=== PATIENT | male | born 1940 | race Two or more races ===

== ENCOUNTER 2016-04-24 16:48 | Emergency (ER) | payer OTHER ==
[~2016-04-24] VITALS: Ht 167.6 cm; Wt 81.6 kg
[2016-04-24 17:41] VITALS: BP 127/71
[2016-04-24 17:59] LABS: Urine Bilirubin Negative (Negative); Urine Blood 3+ /uL (Negative); Urine Color Yellow (Yellow); Urine Glucose 4+ mg/dL (Normal); Urine Ketone Negative (Negative); Urine Nitrite Negative (Negative); Urine RBC 79 /hpf (0 - 3); Urine Urobilinogen Normal (Negative); Urine pH 6.5 (5.0-8.0)
== END 2016-04-25 02:30 | disposition left against medical advice (07) ==
LOC: ER 16:54
DX: R31.9 Hematuria, unspecified (principal); Z53.21 Procedure and treatment not carried out due to patient leaving prior to being seen by health care provider
CPT/HCPCS: 81001

== ENCOUNTER 2024-03-03 17:28 | Inpatient (IN) | payer OTHER ==
[~2024-03-03] VITALS: Ht 167.6 cm; Wt 87.9 kg
[2024-03-03 18:08] VITALS: PULSE 102
--- NOTE | 2024-03-03 18:37 | ED.PDOC ---
History of Present Illness HPI Comments 83-year-old male who came to ER via EMS cardiac arrest. Per EMS, patient was picked up at home, having dinner, when he choked on a piece of meat, lost consciousness. Family members performed a Heimlich maneuver, and started CPR on him his paramedics were called. Patient had an episode of vomiting as he woke up. Patient has no recollection what happened. Patient is saturating at 95% air at this time. Chief Complaint: CPR Time Seen by MD: 18:37 Reviewed Notes: Construction Controller Notes Allergies: Coded Allergies: NO KNOWN ALLERGIES (Unverified , 03/03/24) Information Source: Emergency Med Personnel Mode of Arrival: EMS Severity: Moderate Timing: Minutes Duration: Since onset Prehospital treatment: None Past Medical History PAST MEDICAL HISTORY: Dementia Surgical History: Pt Confused Family History Family History: Pt Confused Social History Smoker: Pt Confused Alcohol: Pt Confused Drugs: Pt Confused Lives In: Home Unable to Obtain due to: Dementia Physical Exam General Appearance: No Apparent Distress, Normal HEENT: Normal ENT Inspection, Pharynx Normal, TMs Normal Neck: Full Range of Motion, Non-Tender, Normal, Normal Inspection Respiratory: Chest Non-Tender, Lungs Clear, No Accessory Muscle Use, No Respiratory Distress, Normal Breath Sounds Cardiovascular: No Edema, No JVD, No Murmur, No Gallop, Normal Peripheral Pulses, Regular Rate/Rhythm Breast Exam: Deferred Gastrointestinal: No Organomegaly, Non Tender, No Pulsatile Mass, Normal Bowel Sounds, Soft Genitalia: Deferred Pelvic: Deferred Rectal: Deferred Extremities: No calf tenderness, Normal capillary refill, Normal inspection, Normal range of motion, Non-tender, No pedal edema Musculoskeletal : Apperance: Normal Neurologic: Alert, active directory specialist II-XII nml as Tested, No Motor Deficits, Normal Affect, Normal Mood, No Sensory Deficits Cerebellar Function: Normal Reflexes: Normal Skin: Dry, Normal Color, Warm Lymphatic: No Adenopathy Was a procedure done? Was a procedure done?: No Differential Dx Considerations may include: Aspiration pneumonia, dementia, status post cardiac arrest X-Ray, Labs, Meds, VS Vital Signs Date Time Temp Pulse Resp B/P (MAP) Pulse Ox O2 Delivery O2 Flow Rate FiO2 03/03/24 21:00 94 24 131/69 (89) 94 03/03/24 20:00 93 03/03/24 19:45 96 20 93 Nasal Cannula* 5 40 03/03/24 19:27 98.6 103 25 144/77 (99) 93 98.6 03/03/24 18:52 107 03/03/24 18:08 102 03/03/24 18:08 102 18 123/67 (85) 91 03/03/24 17:49 97.8 92 24 127/79 (95) 90 Lab Test 03/03/24 20:20 03/03/24 19:00 03/03/24 18:00 Range/Units Troponin I High Sensitivity 186 *H 67 *H </=54 ng/L White Blood Count 19.0 H 4.4-10.8 10^3/uL Red Blood Count 4.80 4.5-5.90 10^6/uL Hemoglobin 15.7 13.5-17.5 g/dL Hematocrit 46.1 41.0-53.0 % Mean Corpuscular Volume 96.1 80.0-100.0 fL Mean Corpuscular Hemoglobin 32.8 H 28.0-32.0 pg Mean Corpuscular Hemoglobin Concent 34.1 32.0-36.0 g/dL Red Cell Distribution Width 14.2 11.8-14.3 % Platelet Count 242 140-450 10^3/uL Mean Platelet Volume 7.5 6.9-10.8 fL Neutrophils (%) (Auto) 82.5 H 37.0-80.0 % Lymphocytes (%) (Auto) 9.1 L 10.0-50.0 % Monocytes (%) (Auto) 6.5 0.0-12.0 % Eosinophils (%) (Auto) 1.5 0.0-7.0 % Basophils (%) (Auto) 0.4 0.0-2.0 % Neutrophils # (Auto) 15.6 H 1.6-8.6 10 ^3/uL Lymphocytes # (Auto) 1.7 0.4-5.4 10 ^3/uL Monocytes # (Auto) 1.2 0-1.3 10 ^3/uL Eosinophils # (Auto) 0.3 0-0.8 10 ^3/uL Basophils # (Auto) 0.1 0-0.2 10 ^3/uL Nucleated Red Blood Cells 0.1 % Sodium Level 140 136-145 mmol/L Potassium Level 4.3 3.5-5.1 mmol/L Chloride Level 102 98-107 mmol/L Carbon Dioxide Level 26 20-31 mmol/L Anion Gap 12 5-15 Blood Urea Nitrogen 21 9-23 mg/dL Creatinine 1.30 0.700-1.30 mg/dL Glomerular Filtration Rate Calc 55 >90 mL/min BUN/Creatinine Ratio 16.2 10.0-20.0 Serum Glucose 274 H 74-106 mg/dL Lactic Acid Level 6.4 *H 0.4-2.0 mmol/L Calcium Level 10.2 8.7-10.4 mg/dL Urine Color Colorless Yellow Urine Clarity Clear Clear Urine pH 5.0 5.0-9.0 Urine Specific [place] 1.024 1.001-1.035 Urine Protein 1+ H Negative Urine Ketones 1+ H Negative Urine Blood 2+ H Negative /uL Urine Nitrite Negative Negative Urine Bilirubin Negative Negative Urine Urobilinogen Normal Negative mg/dL Urine Leukocyte Esterase 1+ Negative /uL Urine RBC 31 0 - 3 /hpf Urine WBC 82 0 - 3 /hpf Urine Squamous Epithelial Cells Few <5 /hpf Urine Bacteria None seen None Seen /hpf Urine Glucose 4+ H Normal mg/dL Time of 1ST Reevaluation: 18:34 Reevaluation 1ST: Unchanged Patient Education/Counseling: Other (Has a dementia) Family Education/Counseling: No Family Present Departure 1 Departure Time of Disposition: 21:15 ([place] Authorization for admission here [id number] Patient is post arrest s/p choking. Elevated lactic acid, on bipap, receiving antibiotics for possible aspiration pneumonia) Impression: Primary Impression: Choking due to food in larynx Qualified Codes: T17.320A - Food in larynx causing asphyxiation, initial encounter; [id number].F3XA - Food entering into or through a natural orifice, initial encounter Additional Impression: Respiratory arrest associated with feeding Disposition: ADMITTED INPATIENT Admit to: ICU Condition: Critical Critical Care Note Critical Care Time?: Yes (35 min-critical care time only) Critical care comment: Post Arrest Hypoxia Authorized and Performed by: Gisselle Nguyen MD Total critical care time: Approximately 42 minutes Due to a high probability of clinically significant, life threatening deterioration, the patient required my highest level of preparedness to intervene emergently and I personally spent this critical care time directly and personally managing the patient. This critical care time included obtaining a history; examining the patient; pulse oximetry; ordering and review of studies; arranging urgent treatment with development of a management plan; evaluation of patient's response to treatment; frequent reassessment; and, discussions with other providers. This critical care time was performed to assess and manage the high probability of imminent, life-threatening deterioration that could result in multi-organ failure. It was exclusive of separately billable procedures and treating other patients and teaching time. Please see my other sections and the rest of the note for further information on patient assessment and treatment. Stability Stability form required: No Heart Score Heart Score: Heart Score Response (Comments) Value History N/A 0 EKG N/A 0 Age N/A 0 Risk Factors N/A 0 Troponin N/A 0 Total 0 I personally scribed for GISSELLE NGUYEN MD ([email or web address]) on 03/03/24 at 18:37. Electronically submitted by Cesar Hirsch ([email or web address]). GISSELLE NGUYEN MD Mar 03, 2024 18:37
[2024-03-03 18:57] LABS: Urine Bacteria None Seen /hpf (None Seen)
--- NOTE | 2024-03-03 19:02 | DVH ---
EXAM: CT HEAD WITHOUT CONTRAST INDICATION: ams TECHNIQUE: CT of the head without intravenous contrast. Radiation Dose Information: CT Dose: CTDI volume is 53.25 mGy. Dose-length product is 863.9 mGy*cm The dose indicators for CT are the volume Computed Tomography (CT) Dose Index (CTDIvol) and the Dose Length Product (DLP), and are measured in units of mGy and mGy-cm, respectively. These indicators are not patient dose, but values generated from the CT scanner acquisition factors. The report includes radiation exposure data for exposures received during this examination. COMPARISON: None FINDINGS: There is no evidence of acute intracranial hemorrhage, extra-axial collection, mass effect, midline s hift, herniation or hydrocephalus. The ventricles, sulci and cisterns are age appropriate. The alaniz-white differentiation is intact. Patchy periventricular and subcortical white matter hypoattenuation is nonspecific but may be related to small vessel ischemic disease. The visualized paranasal sinuses and mastoid air cells are clear. The surrounding soft tissues and osseous structures are unremarkable. IMPRESSION: 1. No acute intracranial hemorrhage. 2. No CT findings of territorial ischemia. HS:Y
--- NOTE | 2024-03-03 19:08 | DVH ---
CHEST RADIOGRAPH Indication: ams Technique: Single frontal view of the chest was obtained COMPARISON: None FINDINGS: Lines and Tubes: None Lungs: No focal consolidation. Mild prominence of the pulmonary vasculature. Pleura: No effusion. No pneumothorax. Cardiomediastinal contours: Unremarkable Bones: Unremarkable IMPRESSION: 1. Pulmonary vascular congestion. No focal consolidation.
[2024-03-03 19:16] LABS: Basophils # (auto) 0.1 10 ^3/uL (0-0.2); Basophils % (auto) 0.4 % (0.0-2.0); Eosinophils # (auto) 0.3 10 ^3/uL (0-0.8); Eosinophils % (auto) 1.5 % (0.0-7.0); Hematocrit 46.1 % (41.0-53.0); Hemoglobin 15.7 g/dL (13.5-17.5); Lymphocytes # (auto) 1.7 10 ^3/uL (0.4-5.4); Lymphocytes % (auto) 9.1 % (10.0-50.0); Mean Corpuscular Hemoglobin 32.8 pg (28.0-32.0); Mean Corpuscular Hgb Conc. 34.1 g/dL (32.0-36.0); Mean Corpuscular Volume 96.1 fL (80.0-100.0); Monocytes # (auto) 1.2 10 ^3/uL (0-1.3); Monocytes % (auto) 6.5 % (0.0-12.0); Neutrophils # (auto) 15.6 10 ^3/uL (1.6-8.6); Neutrophils % (auto) 82.5 % (37.0-80.0); Nucleated Red Blood Cells % 0.1 %; Platelet Count (auto) 242 10^3/uL (140-450); Red Cell Distribution Width 14.2 % (11.8-14.3)
[2024-03-03 19:20] LABS: Urine Blood 2+ /uL (Negative); Urine Clarity Clear (Clear); Urine Color Colorless (Yellow); Urine Protein, UAD 1+ (Negative); Urine Specific Gravity 1.024 (1.001-1.035); Urine Urobilinogen Normal (Negative); Urine WBC 82 /hpf (0 - 3)
[2024-03-03 19:23] LABS: Chloride 102 mmol/L (98-107); Potassium 4.3 mmol/L (3.5-5.1); Sodium 140 mmol/L (136-145)
[2024-03-03 19:24] LABS: Anion Gap 12 (5-15); Calcium 10.2 mg/dL (8.7-10.4); Carbon Dioxide 26 mmol/L (20-31)
[2024-03-03 19:29] LABS: BUN/Creatinine Ratio 16.2 (10.0-20.0); Blood Urea Nitrogen 21 mg/dL (9-23); Glucose 274 mg/dL (74-106)
[2024-03-03 19:44] LABS: Lactic Acid w/Reflex 6.4 mmol/L (0.4-2.0)
[2024-03-03 19:45] VITALS: PULSE 96; RESP 20; O2SAT 93
[2024-03-03] MEDS: MORPHINE SULFATE 4 MG/ML SYR/VIAL IV ONE (22:08)
[2024-03-03] MEDS: ONDANSETRON HCL 4 MG/2 ML VIAL IV ONE (22:08)
[2024-03-03] MEDS: AZITHROMYCIN 500MG/ 250ML 250 ML IV ONE (22:26)
[2024-03-03 22:32] LABS: Base Excess 2.1 mmol/L (-2.0-3.0)
[2024-03-03 23:47] VITALS: BP 130/74; PULSE 93; RESP 24; TEMP 98.6; O2SAT 96
--- NOTE | 2024-03-03 23:53 | DVHHP2 ---
History of Present Illness Reason for Visit: Choking due to food in larynx History of Present Illness The patient is a 83-year-old male with past medical history of dementia and diabetes mellitus who presented to [facility] ED for evaluation of cardiac arrest. As reported by EMS, patient was picked up at home due to he was chocked on a piece of meat while having dinner and loss of consciousness. Patient's family performed a Heimlich maneuver, started CPR on him, and paramedics were called. Patient unable to recall what happened. Patient was seen and evaluated in the ED, laboratory data shows WBC 19.0, platelets 242, sodium 140, potassium 4.3, BUN 21, creatinine 1.30, glucose 274, troponin 584, lactic acid 6.4 trending down to 3.4, calcium 10.2, blood pressure 147/80, heart rate 92, temperature 98.6 F, O2 saturation 94% on oxygen. Urinalysis positive for urinary tract infection. Head CT showed no acute intracranial hemorrhage. Chest x-ray revealing pulmonary vascular congestion no focal consolidation. Please see medication orders section in the computer. On my assessment, patient denied chest pain, headache, no dizziness, no diaphoresis, no shortness of breath, no nausea, no vomiting, no fever, no chills. Patient was admitted for further evaluation and medical management. Past Medical History Dementia, DM Past Surgical History Denies all surgeries Family History Reviewed, noncontributory to the management of this case. Past Social History The patient lives at home, denies smoking, alcohol or illicit drugs abuse. Review of Systems Constitutional: Yes: Weakness; No: Fever, Chills, Sweats, Malaise, Other Eyes: No: Pain, Vision change, Conjunctivae inflammation, Eyelid inflammation, Other, Redness ENT: No: Ear pain, Ear discharge, Nose pain, Nose discharge, Nose congestion, Mouth pain, Mouth swelling, Throat pain, Throat swelling, Other Respiratory: No: Cough, Dry, Shortness of breath, SOB with excertion, Wheezing, Hemoptysis, Pleuritic Pain, Sputum, Wheezing, Other Cardiovascular: Other (Cardiac arrest); No: Chest Pain, Palpitations, Orthopnea, Paroxysmal Noc. Dyspnea, Edema, Lt Headedness Gastrointestinal: No: Nausea, Vomiting, Abdominal Pain, Diarrhea, Constipation, Melena, Hematochezia, Other Genitourinary: No Dysuria, No Frequency, No Incontinence, No Hematuria, No Retention, No Other Musculoskeletal: No: other, neck pain, shoulder pain, arm pain, back pain, hand pain, leg pain, foot pain Skin: No: Rash, Lesions, Jaundice, Bruising, Other Neurological: No: Weakness, Numbness, Incoordination, Change in speech, Confusion, Seizures, Other Allergies: Coded Allergies: NO KNOWN ALLERGIES (Unverified , 03/03/24) Medications Current Medications Medications Dose Ordered Sig/Fito Route Start Time Stop Time Status Last Admin Dose Admin Ceftriaxone Sodium 50 ml @ 100 mls/hr DAILY@09 IV 03/04/24 09:00 Azithromycin 250 ml @ 125 mls/hr DAILY IV 03/04/24 10:00 Famotidine 20 mg DAILY IV 03/04/24 10:00 Heparin Sodium (Porcine) 5,000 units Q12HR SC 03/04/24 10:00 Sodium Chloride 10 ml Q8HR IV 03/04/24 06:00 Ondansetron HCl 4 mg Q4HP PRN IV 03/03/24 23:00 Exam Vital Signs Vital Signs Date Time Temp Pulse Resp B/P (MAP) Pulse Ox O2 Delivery O2 Flow Rate FiO2 03/03/24 23:00 93 24 130/74 (92) 96 03/03/24 21:30 Facial BiPAP Mask 100 03/03/24 19:45 5 03/03/24 19:27 98.6 98.6 General Appearance: Alert, Cooperative, No acute distress, mild distress, Other (Oriented x2) HEENT: Atraumatic, PERRLA, EOMI, Mucous membr. moist/pink Respiratory: Clear to auscultation, Normal air movement Cardiovascular: Regular rate, Normal S1, Normal S2, No murmurs Abdominal: Normal bowel sounds, Soft, No tenderness, No hepatospenomegaly, No masses Extremities: No clubbing, No cyanosis, No edema, Normal pulses, No tenderness/swelling Skin: No rashes, No breakdown, No significant lesion Neuro: Normal speech, Normal tone, Sensation intact, Cranial nerves 3-12 NL, Reflexes 2+, Other (Generalized weakness) Psych/Mental Status: Mental status NL, Mood NL Labs/Xrays Labs Test 03/03/24 22:20 03/03/24 22:10 03/03/24 19:00 03/03/24 18:00 Range/Units Blood Gas Specimen Type Arterial Blood Gas Sample Site Right radial Blood Gas Patient Temperature 37.0 Arterial Blood Date Drawn [id number] Arterial Blood pH 7.389 7.350-7.450 Arterial Blood Partial Pressure CO2 47.2 35.0-48.0 mmHg Arterial Blood Partial Pressure O2 173.2 H 83.0-108.0 mmHg Arterial Blood HCO3 27.9 21.0-28.0 mmol/L Arterial Blood Oxygen Saturation 99.0 H 94.0-98.0 % Arterial Blood Base Excess 2.1 -2.0-3.0 mmol/L Arterial Blood Oxyhemoglobin 97.7 94.0-98.0 % Arterial Blood Carboxyhemoglobin 0.8 0.5-1.5 % Arterial Blood Methemoglobin 0.5 0.0-1.5 % Jayson Test Modified Blood Gas Total Hemoglobin 15.90 13.5-17.5 g/dL Blood Gas Set Respiration Rate 12.0 Blood Gas Modality Mask - bipap Blood Gas Spontaneous Rate 24 FiO2 % 100.0 Blood Gas Spontaneous Tidal Volume 569 Blood Gas EPAP 5 Blood Gas IPAP 12 Lactic Acid Level 3.4 *H 0.4-2.0 mmol/L Troponin I High Sensitivity 584 *H </=54 ng/L White Blood Count 19.0 H 4.4-10.8 10^3/uL Red Blood Count 4.80 4.5-5.90 10^6/uL Hemoglobin 15.7 13.5-17.5 g/dL Hematocrit 46.1 41.0-53.0 % Mean Corpuscular Volume 96.1 80.0-100.0 fL Mean Corpuscular Hemoglobin 32.8 H 28.0-32.0 pg Mean Corpuscular Hemoglobin Concent 34.1 32.0-36.0 g/dL Red Cell Distribution Width 14.2 11.8-14.3 % Platelet Count 242 140-450 10^3/uL Mean Platelet Volume 7.5 6.9-10.8 fL Neutrophils (%) (Auto) 82.5 H 37.0-80.0 % Lymphocytes (%) (Auto) 9.1 L 10.0-50.0 % Monocytes (%) (Auto) 6.5 0.0-12.0 % Eosinophils (%) (Auto) 1.5 0.0-7.0 % Basophils (%) (Auto) 0.4 0.0-2.0 % Neutrophils # (Auto) 15.6 H 1.6-8.6 10 ^3/uL Lymphocytes # (Auto) 1.7 0.4-5.4 10 ^3/uL Monocytes # (Auto) 1.2 0-1.3 10 ^3/uL Eosinophils # (Auto) 0.3 0-0.8 10 ^3/uL Basophils # (Auto) 0.1 0-0.2 10 ^3/uL Nucleated Red Blood Cells 0.1 % Sodium Level 140 136-145 mmol/L Potassium Level 4.3 3.5-5.1 mmol/L Chloride Level 102 98-107 mmol/L Carbon Dioxide Level 26 20-31 mmol/L Anion Gap 12 5-15 Blood Urea Nitrogen 21 9-23 mg/dL Creatinine 1.30 0.700-1.30 mg/dL Glomerular Filtration Rate Calc 55 >90 mL/min BUN/Creatinine Ratio 16.2 10.0-20.0 Serum Glucose 274 H 74-106 mg/dL Hemoglobin A1c 6.9 H <5.7 % A1C Calcium Level 10.2 8.7-10.4 mg/dL Urine Color Colorless Yellow Urine Clarity Clear Clear Urine pH 5.0 5.0-9.0 Urine Specific [place] 1.024 1.001-1.035 Urine Protein 1+ H Negative Urine Ketones 1+ H Negative Urine Blood 2+ H Negative /uL Urine Nitrite Negative Negative Urine Bilirubin Negative Negative Urine Urobilinogen Normal Negative mg/dL Urine Leukocyte Esterase 1+ Negative /uL Urine RBC 31 0 - 3 /hpf Urine WBC 82 0 - 3 /hpf Urine Squamous Epithelial Cells Few <5 /hpf Urine Bacteria None seen None Seen /hpf Urine Glucose 4+ H Normal mg/dL PATIENT: CORRIE TAYLOR ACCT: [id number] UNIT: [id number] : 1940 LOC: ER ROOM / BED: / AGE / SEX: 83 / M ADM STATUS: REG ER SERVICE 14 ORDERING PHYSICIAN: GISSELLE LI MD PROCEDURE(s): HWOCT - HEAD WITHOUT CONTRAST REASON: ams ORDER NUMBER(s): [id number], ACCESSION NUMBER(s): [id number] EXAM: CT HEAD WITHOUT CONTRAST INDICATION: ams TECHNIQUE: CT of the head without intravenous contrast. Radiation Dose Information: CT Dose: CTDI volume is 53.25 mGy. Dose-length product is 863.9 mGy*cm The dose indicators for CT are the volume Computed Tomography (CT) Dose Index (CTDIvol) and the Dose Length Product (DLP), and are measured in units of mGy and mGy-cm, respectively. These indicators are not patient dose, but values generated from the CT scanner acquisition factors. The report includes radiation exposure data for exposures received during this examination. COMPARISON: None FINDINGS: There is no evidence of acute intracranial hemorrhage, extra-axial collection, mass effect, midline shift, herniation or hydrocephalus. The ventricles, sulci and cisterns are age appropriate. The alaniz-white differentiation is intact. Patchy periventricular and subcortical white matter hypoattenuation is nonspecific but may be related to small vessel ischemic disease. The visualized paranasal sinuses and mastoid air cells are clear. The surrounding soft tissues and osseous structures are unremarkable. IMPRESSION: 1. No acute intracranial hemorrhage. 2. No CT findings of territorial ischemia. ORDERING PHYSICIAN: GISSELLE LI MD PROCEDURE(s): CXRP - CHEST PORTABLE REASON: ams ORDER NUMBER(s): [id number], ACCESSION NUMBER(s): [id number] CHEST RADIOGRAPH Indication: ams Technique: Single frontal view of the chest was obtained COMPARISON: None FINDINGS: Lines and Tubes: None Lungs: No focal consolidation. Mild prominence of the pulmonary vasculature. Pleura: No effusion. No pneumothorax. Cardiomediastinal contours: Unremarkable Bones: Unremarkable IMPRESSION: 1. Pulmonary vascular congestion. No focal consolidation. Assessment/Plan Assessment/Plan Choking due to food in larynx Food in larynx causing asphyxiation, initial encounter Urinary tract infection Generalized weakness Sepsis, unspecified organisms Respiratory arrest associated with feeding Food entering into or through a natural orifice, initial encounter Plan 1. Admit to telemetry unit 2. Breathing treatment 3. Pain control management 4. IV antibiotic management 5. Management of fluids and electrolytes 6. Consultation for cardiology/hospitalist 7. Diagnostic test chest x-ray 8. DVT prophylaxis on heparin 9. Repeat labs CBC, CMP in a.m. 10. Home medication reviewed and reconciled 11. Continue with current medical management 12. Treatment plan discussed with patient and RN. Patient we will need reinforcement of information given mental status. Plan discussed with: Patient, Other (RN) My Orders Orders - KIM OREILLY DNP Procedure Category Date Status Time Ceftriaxone 1gm/50ml PHA 03/04/24 In Process D5w (Rocephin) 09:00 Azithromycin 500mg/ PHA 03/04/24 In Process 250ml (Zithromax 50 10:00 Famotidine Injection PHA 03/04/24 In Process (Pepcid Injection) 10:00 Troponin-I Hs LAB 03/04/24 Verified 01:56 Troponin-I Hs LAB 03/04/24 Verified 04:00 Heparin Sodium PHA 03/04/24 In Process (Porcine) 10:00 Allergies MIAH 03/03/24 In Process 22:56 Code Status CODE 03/03/24 Transmitted 22:56 Sodium Chloride Lock PHA 03/04/24 In Process (Saline Lock Ns) 06:00 Oxygen Per Hour RT 03/03/24 Transmitted 22:56 Ondansetron Hcl PHA 03/03/24 In Process (Zofran) 23:00 Fall Risk Precautions MIAH 03/03/[address] 22:56 Complete Blood Count LAB 03/04/24 Verified 04:00 Comprehensive LAB 03/04/24 Verified Metabolic Panel 04:00 Npo (Nothing By DIET 03/04/24 Transmitted Mouth) Diet Breakfast Condition: Serious MIAH 03/03/24 In Process 22:56 Sequential MIAH 03/03/24 In Process Compression Device Problem List: (1) Choking due to food in larynx (2) Urinary tract infection (3) Generalized weakness (4) Sepsis, unspecified organism (5) Respiratory arrest associated with feeding (6) Food entering into or through a natural orifice, initial encounter (7) Food in larynx causing asphyxiation, initial encounter Date of Service: Mar 03, 2024 Billing Provider: KIM OREILLY DNP Common Visit Codes: [id number] INP/OBS CARE (HIGH) KIM OREILLY DNP Mar 03, 2024 23:53
[2024-03-04] MEDS ORDERED: DEXTROSE (50%) 50ML SYRG IV PRN
[2024-03-04] MEDS ORDERED: NITROGLYCERIN 0.4 MG SL TAB SL PRN
[2024-03-04] MEDS: CEFEPIME 2GM/50ML NS 50 ML IV ONE (00:36)
[2024-03-04] MEDS: ONDANSETRON HCL 4 MG/2 ML VIAL IV PRN (01:42)
[2024-03-04] MEDS: MORPHINE SULFATE INJ 2 MG/ml SYRG IV PRN (01:43)
[2024-03-04] MEDS ORDERED: LORazepam 2MG/ML-1ML VIAL IV PRN (02:45)
[2024-03-04] MEDS ORDERED: MORPHINE SULFATE INJ 2 MG/ml SYRG IV PRN (02:45)
[2024-03-04] MEDS: hydrALAZINE HCL 20 MG/ML VL IV PRN (02:56)
[2024-03-04 04:55] LABS: Basophils # (auto) 0.1 10 ^3/uL (0-0.2); Basophils % (auto) 0.3 % (0.0-2.0); Eosinophils # (auto) 0 10 ^3/uL (0-0.8); Hematocrit 49.2 % (41.0-53.0); Hemoglobin 15.9 g/dL (13.5-17.5); Lymphocytes # (auto) 0.7 10 ^3/uL (0.4-5.4); Lymphocytes % (auto) 3.1 % (10.0-50.0); Mean Corpuscular Hemoglobin 31.6 pg (28.0-32.0); Mean Corpuscular Hgb Conc. 32.4 g/dL (32.0-36.0); Mean Corpuscular Volume 97.8 fL (80.0-100.0); Monocytes # (auto) 1.1 10 ^3/uL (0-1.3); Neutrophils # (auto) 19.8 10 ^3/uL (1.6-8.6); Neutrophils % (auto) 91.6 % (37.0-80.0); Nucleated Red Blood Cells % 0.1 %; Platelet Count (auto) 240 10^3/uL (140-450); Red Blood Cells 5.03 10^6/uL (4.5-5.90); Red Cell Distribution Width 14.4 % (11.8-14.3); White Blood Cell 21.6 10^3/uL (4.4-10.8)
[2024-03-04 05:17] LABS: Alanine Aminotransferase 30 U/L (7-40); Albumin 4.8 g/dL (3.2-4.8); Alkaline Phosphatase 64 U/L (46-116); Anion Gap 10 (5-15); Aspartate Aminotransferase 22 U/L (13-40); BUN/Creatinine Ratio 15.9 (10.0-20.0); Bilirubin, Total 0.5 mg/dL (0.2-1.0); Blood Urea Nitrogen 18 mg/dL (9-23); Calcium 9.9 mg/dL (8.7-10.4); Carbon Dioxide 24 mmol/L (20-31); Chloride 103 mmol/L (98-107); Glucose 337 mg/dL (74-106); Potassium 4.8 mmol/L (3.5-5.1); Sodium 137 mmol/L (136-145); Total Protein 7.4 g/dL (5.7-8.2)
[2024-03-04] MEDS: HEPARIN SODIUM (PORCINE) 5000 UNITS/ML 1ML VIAL SC ONE (05:34)
[2024-03-04] MEDS: SODIUM CHLOR 0.9% PF (SALINE LOCK) 10ML VIAL/SYR IV SCH (05:40)
[2024-03-04] MEDS ORDERED: VANCOMYCIN PER PHARMACY 0 MG IV SCH (06:30)
[2024-03-04] MEDS: dilTIAZem 25 MG/5 ML VIAL IV ONE (06:31)
[2024-03-04] MEDS: ACCU-CHEK COMFORT CURVE STRIP VI SCH (06:39)
[2024-03-04] MEDS: InsuLIN REG 1unit/0.01ml Soln (100units/ml) SC SCH ×2 (06:45→22:40)
[2024-03-04] MEDS: VANCOMYCIN 1GM/200ML PREMIX IV ONE (06:49)
[2024-03-04 08:00] VITALS: PULSE 107; RESP 18; O2SAT 95
--- NOTE | 2024-03-04 08:33 | ECG ---
[facility] Test Date: 2024-03-04 Test Time: 06:22:21 Pat Name: CORRIE TAYLOR Department: ED Room: [address] [place] [address] Gender: M Comic Illustrator: : 1940 Requested By: KIM OREILLY Order Number: [id number] Reading MD: Measurements Intervals [place] Rate: 115 P: 38 MO: 175 QRS: 30 QRSD: 83 T: 18 QT: 314 QTc: 435 Interpretive Statements Sinus tachycardia Probable anteroseptal infarct, old Please click the below link to view image of tracing.
[2024-03-04] MEDS: cefTRIAXone 1GM/50ML D5W 50 ML IV SCH (09:00)
[2024-03-04] MEDS: FAMOTIDINE (10MG/ML) 2ML VL IV SCH ×2 (09:45→22:34)
[2024-03-04] MEDS: AZITHROMYCIN 500MG/ 250ML 250 ML IV SCH (09:45)
[2024-03-04] MEDS: FUROSEMIDE 20 MG/2 ML VIAL IV ONE (11:45)
--- NOTE | 2024-03-04 11:47 | DVHINCON2 ---
Date Seen: Mar 04, 2024 Referring Physician DIAMOND Barajas Reason for Consultation Elevated troponin History of Present Illness This is an 83-year-old man who presented to emergency room via EMS with a chief complaint of foreign body airway obstruction. The patient is A&O x 2, information obtained from records. Apparently the patient choked on a piece of steak with family members unsuccessfully performing a Heimlich maneuver and subsequent CPR as the patient lost consciousness. Upon regaining consciousness, the patient experienced vomiting. He presented to the emergency room with O2 saturations of 95%. Cardiology consulted for troponin levels peaking in the 900s ng/L. A 12 lead electrocardiogram revealed a sinus tachycardia rhythm at 115 bpm with no evident ischemia. C/o chest pain which is reproducible upon palpation. Significant medical history includes diabetes mellitus and dementia. Past Medical History Unable to obtain full past medical history at this time. Past Surgical History Unable to obtain past surgical history at this time. Family History Unable to obtain family history at this time. Social History States he lives with his . Unable to obtain rest of social history. Allergies: Coded Allergies: NO KNOWN ALLERGIES (Unverified , 03/03/24) Home Meds Unable to obtain home medications. Current Medications Current Medications Medications (Trade) Dose Ordered Sig/Fito Route PRN Reason Start Time Stop Time Status Last Admin Ceftriaxone Sodium 50 ml @ 100 mls/hr DAILY@09 IV 03/04/24 09:00 03/04/24 09:00 Azithromycin 250 ml @ 125 mls/hr DAILY IV 03/04/24 10:00 03/04/24 09:45 Famotidine (Pepcid Injection) 20 mg DAILY IV 03/04/24 10:00 03/04/24 09:45 Heparin Sodium (Porcine) 5,000 units Q12HR SC 03/04/24 22:00 Sodium Chloride (Saline Lock Ns) 10 ml Q8HR IV 03/04/24 06:00 03/04/24 05:40 Ondansetron HCl (Zofran) 4 mg Q4HP PRN IV NAUSEA / VOMITING 03/03/24 23:00 03/04/24 09:46 Diagnostic Test (Pha) (Accu-Chek Comfort Curve T) 1 strip ACHS 03/04/24 07:00 03/04/24 06:39 Insulin Human Regular (InsuLIN R) HS SC 03/04/24 22:00 Insulin Human Regular (InsuLIN R) AC SC 03/04/24 07:00 03/04/24 06:45 Dextrose 50 ml UD PRN IV Blood Sugar LESS THAN 60 03/04/24 00:00 Nitroglycerin (Ntrostat Sublingual) 0.4 mg Q5MINP PRN SL FOR CHEST PAIN 03/04/24 00:00 Morphine Sulfate 2 mg Q30M PRN IV FOR CHEST PAIN 03/04/24 00:00 03/04/24 09:46 Hydralazine HCl (Apresoline Injection) 10 mg Q6HP PRN IV SBP>150 03/04/24 02:45 03/04/24 02:56 Lorazepam (Ativan Inj) 0.5 mg Q8HP PRN IV ANXIETY 03/04/24 02:45 Morphine Sulfate 2 mg Q4HPRN PRN IV SEVERE PAIN (7-10 PAIN SCALE) 03/04/24 02:45 Vancomycin HCl 0 ml @ 0 mls/hr UD IV 03/04/24 06:30 Vancomycin HCl 150 ml @ 150 mls/hr Q12H IV 03/05/24 01:00 Review of Systems Constitutional: No symptom reported Ears, Nose, & Throat: No symptom reported Eyes: No symptom reported Neurological: No symptoms reported Pulmonary/Respiratory: No symptom reported Cardiovascular: No symptom reported Gastrointestinal: No symptom reported Genitourinary: No symptom reported Musculoskeletal: Chest wall pain Skin: No symptom reported Psychiatric: No symptom reported Endocrine: No symptom reported Hemotologic/Lymphatic: No symptom reported Vital Signs Vital Signs Date Time Temp Pulse Resp B/P (MAP) Pulse Ox O2 Delivery O2 Flow Rate FiO2 03/04/24 09:46 104 95 145/74 03/04/24 06:03 95 03/03/24 23:47 98.6 6.0 98.6 03/03/24 21:30 Facial BiPAP Mask 100 Physical Exam General Appearance: Lethargic. Elder. Well nourished. In no acute distress Head Exam: Normal inspection Neck Exam: Normal inspection. Non-tender. Normal alignment Pulmonary/Respiratory: Chest tender to palpation. Coarse bilateral breath sounds Cardiovascular/Chest: Regular rate and rhythm. S1, S2. NSR. No murmurs. No JVD. Peripheral Pulses: 2+ Radial (R). 2+ Radial (L). 2+ Pedal (R). 2+ Pedal (L) Abdominal Exam: Normal bowel sounds. Soft. Nontender. No hepatospenomegaly. No masses Ankle Exam: Negative ankle edema Lower extremities: Negative lower extremity edema Neuro/Mental Status: A&O x2. Very poor historian Thoughts/Psych: Appropriate mood and affect Appearance: In no acute distress Skin Exam: Normal inspection. Normal color. Warm. Dry Labs/Diagnostic Data Labs Test 03/04/24 06:37 03/04/24 04:35 03/03/24 22:20 03/03/24 22:10 Range/Units POC Glucose 317 H 70-106 mg/dl White Blood Count 21.6 H 4.4-10.8 10^3/uL Red Blood Count 5.03 4.5-5.90 10^6/uL Hemoglobin 15.9 13.5-17.5 g/dL Hematocrit 49.2 41.0-53.0 % Mean Corpuscular Volume 97.8 80.0-100.0 fL Mean Corpuscular Hemoglobin 31.6 28.0-32.0 pg Mean Corpuscular Hemoglobin Concent 32.4 32.0-36.0 g/dL Red Cell Distribution Width 14.4 H 11.8-14.3 % Platelet Count 240 140-450 10^3/uL Mean Platelet Volume 7.5 6.9-10.8 fL Neutrophils (%) (Auto) 91.6 H 37.0-80.0 % Lymphocytes (%) (Auto) 3.1 L 10.0-50.0 % Monocytes (%) (Auto) 5.0 0.0-12.0 % Eosinophils (%) (Auto) 0.0 0.0-7.0 % Basophils (%) (Auto) 0.3 0.0-2.0 % Neutrophils # (Auto) 19.8 H 1.6-8.6 10 ^3/uL Lymphocytes # (Auto) 0.7 0.4-5.4 10 ^3/uL Monocytes # (Auto) 1.1 0-1.3 10 ^3/uL Eosinophils # (Auto) 0 0-0.8 10 ^3/uL Basophils # (Auto) 0.1 0-0.2 10 ^3/uL Nucleated Red Blood Cells 0.1 % Sodium Level 137 136-145 mmol/L Potassium Level 4.8 3.5-5.1 mmol/L Chloride Level 103 98-107 mmol/L Carbon Dioxide Level 24 20-31 mmol/L Anion Gap 10 5-15 Blood Urea Nitrogen 18 9-23 mg/dL Creatinine 1.13 0.700-1.30 mg/dL Glomerular Filtration Rate Calc 65 >90 mL/min BUN/Creatinine Ratio 15.9 10.0-20.0 Serum Glucose 337 H 74-106 mg/dL Calcium Level 9.9 8.7-10.4 mg/dL Total Bilirubin 0.5 0.2-1.0 mg/dL Aspartate Amino Transferase (AST) 22 13-40 U/L Alanine Aminotransferase (ALT) 30 7-40 U/L Alkaline Phosphatase 64 46-116 U/L Troponin I High Sensitivity 837 *H </=54 ng/L B-Type Natriuretic Peptide 84.19 0-100 pg/mL Total Protein 7.4 5.7-8.2 g/dL Albumin 4.8 3.2-4.8 g/dL Blood Gas Specimen Type Arterial Blood Gas Sample Site Right radial Blood Gas Patient Temperature 37.0 Arterial Blood Date Drawn [id number] Arterial Blood pH 7.389 7.350-7.450 Arterial Blood Partial Pressure CO2 47.2 35.0-48.0 mmHg Arterial Blood Partial Pressure O2 173.2 H 83.0-108.0 mmHg Arterial Blood HCO3 27.9 21.0-28.0 mmol/L Arterial Blood Oxygen Saturation 99.0 H 94.0-98.0 % Arterial Blood Base Excess 2.1 -2.0-3.0 mmol/L Arterial Blood Oxyhemoglobin 97.7 94.0-98.0 % Arterial Blood Carboxyhemoglobin 0.8 0.5-1.5 % Arterial Blood Methemoglobin 0.5 0.0-1.5 % Jayson Test Modified Blood Gas Total Hemoglobin 15.90 13.5-17.5 g/dL Blood Gas Set Respiration Rate 12.0 Blood Gas Modality Mask - bipap Blood Gas Spontaneous Rate 24 FiO2 % 100.0 Blood Gas Spontaneous Tidal Volume 569 Blood Gas EPAP 5 Blood Gas IPAP 12 Lactic Acid Level 3.4 *H 0.4-2.0 mmol/L Test 03/03/24 19:00 03/03/24 18:00 Range/Units Hemoglobin A1c 6.9 H <5.7 % A1C Urine Color Colorless Yellow Urine Clarity Clear Clear Urine pH 5.0 5.0-9.0 Urine Specific Mckee 1.024 1.001-1.035 Urine Protein 1+ H Negative Urine Ketones 1+ H Negative Urine Blood 2+ H Negative /uL Urine Nitrite Negative Negative Urine Bilirubin Negative Negative Urine Urobilinogen Normal Negative mg/dL Urine Leukocyte Esterase 1+ Negative /uL Urine RBC 31 0 - 3 /hpf Urine WBC 82 0 - 3 /hpf Urine Squamous Epithelial Cells Few <5 /hpf Urine Bacteria None seen None Seen /hpf Urine Glucose 4+ H Normal mg/dL Assessment Foreign body airway obstruction Non-cardiac chest pain, musculoskeletal status post CPR NSTEMI likely type II secondary to above Questionable cardiac arrest, not suspected Rule out structural heart disease Diabetes mellitus Dementia Plan/Recommendation (Dr. Cooper) Patient presents with noncardiac chest pain likely musculoskeletal secondary to CPR provided by family for questionable cardiac arrest due to foreign body air way obstruction. We will continue further evaluation with a transthoracic echocardiogram to rule out structural heart disease. In the setting of an unremarkable echocardiogram, there is no further cardiac workup indicated at this time. Thank you for allowing us to participate in this patient's care. Please call if you have any questions or concerns. This medical document was created using an electronic medical record system with voice recognition software and computerized dictation system. Although this document has been carefully reviewed, there might still be some phonetic and typographical errors. Occasional wrong-word or ``sound-alike substitutions may have occurred due to the inherent limitations of voice recognition software. These areas are purely typographical due to imperfections of the software programs and do not reflect any compromise in the patient's medical care. Please read the chart carefully and recognize, using context, where these substitutions have occurred. Plan discussed with: Other Date of Service: Mar 04, 2024 Billing Provider: PANFILO COOPER MD Cardiology Common Codes: [id number] INP/OBS CARE (High) [facility] Mar 04, 2024 11:47
--- NOTE | 2024-03-04 12:11 | DVHPNRES ---
Progress Note Objective vital signs Vital Sign Date Time Temp Pulse Resp B/P (MAP) Pulse Ox O2 Delivery O2 Flow Rate FiO2 03/04/24 09:46 104 95 145/74 03/04/24 06:03 95 03/03/24 23:47 98.6 6.0 98.6 03/03/24 21:30 Facial BiPAP Mask 100 Total Intake and Output 03/03/24 03/03/24 03/04/24 15:00 23:00 07:00 Intake Total 300.0 ml Balance 300.0 ml medications Current Medications Medications Dose Ordered Sig/Fito Route Start Time Stop Time Status Last Admin Dose Admin Ceftriaxone Sodium 50 ml @ 100 mls/hr DAILY@09 IV 03/04/24 09:00 03/04/24 09:00 100 MLS/HR Azithromycin 250 ml @ 125 mls/hr DAILY IV 03/04/24 10:00 03/04/24 09:45 125 MLS/HR Heparin Sodium (Porcine) 5,000 units Q12HR SC 03/04/24 22:00 Sodium Chloride 10 ml Q8HR IV 03/04/24 06:00 03/04/24 05:40 10 ML Ondansetron HCl 4 mg Q4HP PRN IV 03/03/24 23:00 03/04/24 09:46 4 MG Diagnostic Test (Pha) 1 strip ACHS 03/04/24 07:00 03/04/24 06:39 1 STRIP Insulin Human Regular HS SC 03/04/24 22:00 Insulin Human Regular AC SC 03/04/24 07:00 03/04/24 06:45 12 UNITS Dextrose 50 ml UD PRN IV 03/04/24 00:00 Nitroglycerin 0.4 mg Q5MINP PRN SL 03/04/24 00:00 Hydralazine HCl 10 mg Q6HP PRN IV 03/04/24 02:45 03/04/24 02:56 10 MG Lorazepam 0.5 mg Q8HP PRN IV 03/04/24 02:45 Vancomycin HCl 0 ml @ 0 mls/hr UD IV 03/04/24 06:30 Cancel Vancomycin HCl 150 ml @ 150 mls/hr Q12H IV 03/05/24 01:00 Cancel Lidocaine 1 patch DAILY TOP 03/05/24 10:00 Famotidine 20 mg BID IV 03/04/24 22:00 UNV Lactated Ringer's 1,000 ml @ 50 mls/hr Q20H IV 03/04/24 12:15 UNV Acetaminophen 650 mg Q6HR PO 03/04/24 12:15 UNV Morphine Sulfate 1 mg Q4HP PRN IV 03/04/24 12:15 UNV laboratory and microbiology Laboratory Tests 03/04/24 04:35 Test 03/04/24 04:35 Range/Units Serum Glucose 337 H 74-106 mg/dL My Orders My Orders Orders - YANETH GRANT RESIDENT Procedure Category Date Status Time Ct Chest With And Wo CT 03/04/24 Logged 11:55 Lactic Acid W/ Reflex LAB 03/04/24 Logged Order 11:57 Incentive Spirometry ORDERS 03/04/24 Transmitted Q 1hr 11:58 Lidocaine 5% Topical PHA 03/05/24 In Process Patch (Lidoderm 5% 10:00 Famotidine Injection PHA 03/04/24 Logged (Pepcid Injection) 22:00 Strict Aspiration MIAH 03/04/24 In Process Precautions 12:02 May Have Head Of Bed MIAH 03/04/24 In Process up 12:02 * Swallow Request ST 03/04/24 Transmitted 12:02 Npo (Nothing By DIET 03/04/24 Transmitted Mouth) Diet Lunch Lactated Ringer's PHA 03/04/24 Logged 12:15 Acetaminophen Tablet PHA 03/04/24 Logged (Tylenol Tablet) 12:15 Morphine Sulfate PHA 03/04/24 Logged Injection 12:15 Nifedipine Er PHA 03/04/24 Transmitted (Procardia Xl 12:15 YANETH GRANT RESIDENT Mar 04, 2024 12:11
[2024-03-04] MEDS: LACTATED RINGER'S 1,000 ML IV SCH (12:15)
[2024-03-04 13:29] LABS: Lactic Acid w/Reflex 2.9 mmol/L (0.4-2.0)
[2024-03-04] MEDS: IOHEXOL 300 MG/ML 100ML BOTTLE IJ ONE (13:49)
[2024-03-04] MEDS: ACETAMINOPHEN 325 MG TAB PO SCH (13:49)
[2024-03-04] MEDS: NIFEdipine ER 30 MG TAB PO SCH (13:49)
[2024-03-04] MEDS: LIDOCAINE 5% TOPICAL PATCH TOP ONE (13:50)
[2024-03-04 15:00] VITALS: BP 124/75; PULSE 95; RESP 17; TEMP 98.6; O2SAT 95
[2024-03-04 15:23] VITALS: BP 103/60; PULSE 100; RESP 18; TEMP 98.7; O2SAT 96
--- NOTE | 2024-03-04 15:52 | DVH ---
EXAM: CT CT CHEST WITH AND WO HISTORY: mediastenal widening, cardiac contusion aortic diameter COMPARISON: None TECHNIQUE: Axial images were obtained and reformatted in coronal and sagittal planes. All CT scans at this medical facility are performed using dose modulation techniques as appropriate to a performed exam including the following: Automated exposure control was utilized; adjustment of the MA and/or K V according to patient size; and use of iterative reconstruction technique. CT Dose: CTDI volume is 26.6 mGy. Dose-length product is 1972.06 mGy*cm FINDINGS: Lower neck: Mildly enlarged and heterogeneous thyroid gland with few punctate calcifications noted . Cardiomediastinal The heart is normal in size. Heavy coronary artery calcification/ stenting noted. Aorta is normal in caliber with scattered calcified plaques noted. Prominent pulmonary arterial trunk reflecting underlying pulmonary arterial hypertension. Mild mediastinal and hilar lymphadenopathy. s mall amount of fluid is seen in the esophageal lumen. Lungs: Bibasilar pulmonary opacities, left greater than right. No pleural effusion. No pneumothorax. Bones and Soft Tissues: No acute abnormality. 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 Upper Abdomen: No acute abnormality. Mildly nodular liver contour. Other: None. IMPRESSION: 1. Left lower lobe pneumonia involving the superior and medial basal segments possibly aspiration pne umonia. Small amount of fluid is seen in esophageal lumen. 2. Mild right basilar subsegmental atelectasis. 3. Mild cardiomegaly.
[2024-03-04 17:00] VITALS: BP 113/76; PULSE 96; RESP 17; TEMP 98.5; O2SAT 95
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
[2024-03-04 20:00] VITALS: PULSE 99
[2024-03-04 21:00] VITALS: BP 111/63; PULSE 99; RESP 18; TEMP 97.7; O2SAT 91
[2024-03-04] MEDS: HEPARIN SODIUM (PORCINE) 5000 UNITS/ML 1ML VIAL SC SCH (22:32)
[2024-03-05] VITALS (9 sets, daily range): BP systolic 112–147; BP diastolic 59–81; PULSE 90–99; RESP 16–20; TEMP 97.7–98.8; O2SAT 94
[2024-03-05] MEDS ORDERED: VANCOMYCIN 750mg/150ml 150 ML IV SCH (01:00)
[2024-03-05 07:00] LABS: Alanine Aminotransferase 18 U/L (7-40); Albumin 4.2 g/dL (3.2-4.8); Alkaline Phosphatase 47 U/L (46-116); Anion Gap 7 (5-15); Aspartate Aminotransferase 10 U/L (13-40); BUN/Creatinine Ratio 20.5 (10.0-20.0); Bilirubin, Total 0.5 mg/dL (0.2-1.0); Blood Urea Nitrogen 24 mg/dL (9-23); Calcium 9.4 mg/dL (8.7-10.4); Carbon Dioxide 27 mmol/L (20-31); Chloride 105 mmol/L (98-107); Glucose 174 mg/dL (74-106); Sodium 139 mmol/L (136-145)
[2024-03-05 07:06] LABS: Basophils # (auto) 0 10 ^3/uL (0-0.2); Basophils % (auto) 0.3 % (0.0-2.0); Eosinophils # (auto) 0.2 10 ^3/uL (0-0.8); Eosinophils % (auto) 1.2 % (0.0-7.0); Hematocrit 43.3 % (41.0-53.0); Hemoglobin 14.3 g/dL (13.5-17.5); Lymphocytes # (auto) 1.8 10 ^3/uL (0.4-5.4); Lymphocytes % (auto) 13.1 % (10.0-50.0); Mean Corpuscular Hemoglobin 31.6 pg (28.0-32.0); Mean Corpuscular Hgb Conc. 32.9 g/dL (32.0-36.0); Mean Corpuscular Volume 96.1 fL (80.0-100.0); Monocytes # (auto) 0.9 10 ^3/uL (0-1.3); Monocytes % (auto) 6.4 % (0.0-12.0); Nucleated Red Blood Cells % 0.1 %; Platelet Count (auto) 243 10^3/uL (140-450); Red Blood Cells 4.51 10^6/uL (4.5-5.90); Red Cell Distribution Width 14.5 % (11.8-14.3); White Blood Cell 13.9 10^3/uL (4.4-10.8)
[2024-03-05] MEDS: LIDOCAINE 5% TOPICAL PATCH TOP SCH (10:14)
[2024-03-05 12:09] LABS: INR 1.07 (0.9-1.15); Prothrombin Time 11.3 sec (9.3-11.8)
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
[2024-03-05] MEDS ORDERED: VANCOMYCIN PER PHARMACY 0 MG IV SCH (14:00)
--- NOTE | 2024-03-05 15:20 | DVHSR ---
APPROVED REPORT EXAM: Two-dimensional and M-mode echocardiogram with Doppler and color Doppler. Blood Pressure: 112/59 mmHg INDICATION Heart Failure RISK FACTORS Height: 5'6", Weight: 175 DIMENSIONS LVDd4.3 (3.8-5.7cm)LA (2D)4.2 (1.9-4.0cm)Aortic Root3.5 (2.0-3.7cm) LVDs3.2 (2.5-4.0cm)LA (MM) (1.9-4.0cm)Aortic Cusp Exc1.4 (1.5-2.0cm) EF (%) 49.0 (55-70%)Rt. Atrium4.4 (1.9-4.0cm)Asc. Aorta3.5 cm IVSd1.2 (0.7-1.1cm)RV (D)3.4 (1.8-2.4cm) PWd1.1 (0.7-1.1cm) Mitral Valve MitralMitral Stenosis E wave0.61m/sMV Mean GR.mmHg A wave0.72m/sMV Peak GR.mmHg E/A ratio0.82D MVAcm2 DECEL [id number] 1/2 [place] Aortic Valve Aortic ValveAortic Stenosis V10.76m/Kenrick Mean GR.5mmHg V21.55m/Kenrick Peak GR.10mmHg LVOT Diameter2.1 (1.8-2.4cm)Doppler AVA1.70cm2 Pulmonic Valve V20.84m/s Other Information Quality : Technically LimitedRhythm : Technically limited study due to body habitus. Conclusion Normal left ventricular size and dimension. Normal left ventricular systolic function estimated ejec tion fraction of 50%. There is a grade 1 diastolic dysfunction. Normal right ventricular size and dimension. Normal right ventricular systolic function. Normal biatrial size and dimension. Normal aortic valve structure and function. Normal mitral valve structure and function. Normal tricuspid valve structure and function. The pulmonary valve is grossly normal. No pericardial effusion.
[2024-03-05] MEDS: VANCOMYCIN 1GM/200ML PREMIX 200 ML IV SCH (15:35)
--- NOTE | 2024-03-05 18:57 | DVHINCON2 ---
Date of service: Mar 05, [address] Evangelista Reason for Consultation Aspiration pneumonia, r/o foreign body History of Present Illness 83-year-old man history of dementia, diabetes mellitus type 2 who presented to the emergency department for cardiac arrest. EMS picked the patient up at home as he was choking on a piece of meat. He lost consciousness. Patient performed Heimlich maneuver initiated CPR. EMS was called. CT of the chest was performed that demonstrated a left lower lobe pneumonia and atelectasis. Pulmonary consultation is called due to aspiration pneumonia and evaluation for bronchoscopy to remove foreign body. Review of systems: 14 point review of systems is negative unless otherwise noted above. Past medical history: Dementia, diabetes mellitus type 2 Past surgical history: None mentioned in prior surgeries. Medications: Reviewed Allergies: No known drug allergies. Family history: No family history of premature CAD. No family history of lung disease. Social history: Nonsmoker. No alcohol or illicit drug use. Lives at home with family. Allergies: Coded Allergies: NO KNOWN ALLERGIES (Unverified , 03/03/24) Current Medications Current Medications Medications (Trade) Dose Ordered Sig/Fito Route PRN Reason Start Time Stop Time Status Last Admin Heparin Sodium (Porcine) 5,000 units Q12HR SC 03/04/24 22:00 03/05/24 10:16 Insulin Human Regular (InsuLIN R) HS SC 03/04/24 22:00 03/04/24 22:40 Vancomycin HCl 150 ml @ 150 mls/hr Q12H IV 03/05/24 01:00 Cancel Lidocaine (Lidoderm 5% Topical Patch) 1 patch DAILY TOP 03/05/24 10:00 03/05/24 10:14 Famotidine (Pepcid Injection) 20 mg HS IV 03/04/24 22:00 03/04/24 22:34 Vancomycin HCl 0 ml @ 0 mls/hr UD IV 03/05/24 14:00 Vancomycin HCl 200 ml @ 200 mls/hr Q18H IV 03/05/24 15:00 03/05/24 15:35 Vital Signs Vital Signs Date Time Temp Pulse Resp B/P (MAP) Pulse Ox O2 Delivery O2 Flow Rate FiO2 03/05/24 16:59 98.2 94 18 147/76 (99) 94 98.2 03/05/24 08:05 Nasal Cannula* 5 40 Physical Exam Gen.: Patient lying in bed in no apparent distress. On supplemental oxygen. Head: Normocephalic, atraumatic Eyes: EOMI/PERRLA. Ears: Normal hearing. Normal anatomy. Neck/trachea: Trachea midline, supple. Nose: Normal external anatomy. Mouth: Moist mucous membranes. Chest: Decreased air entry bilaterally. No wheezing. Left lower lung curiel rhonchi. Cardio vascular: Positive S1, positive S2. Regular rate and rhythm. Abdomen: Positive bowel sounds in all 4 quadrants. Soft, non-tender, non- distended. : Deferred. Rectal: Deferred Skin: Warm, dry. Extremities: 2+ radial pulses bilaterally. No lower extremity edema. Neuro: Awake, alert, oriented x1. No gross motor or sensory deficits. Cranial nerves II through XII intact. Gait not assessed. Labs/Diagnostic Data Labs Test 03/05/24 17:51 03/05/24 11:30 03/05/24 06:07 03/04/24 11:55 Range/Units POC Glucose 236 H 70-106 mg/dl Prothrombin Time 11.3 9.3-11.8 sec Prothrombin Time INR 1.07 0.9-1.15 White Blood Count 13.9 #H 4.4-10.8 10^3/uL Red Blood Count 4.51 4.5-5.90 10^6/uL Hemoglobin 14.3 13.5-17.5 g/dL Hematocrit 43.3 # 41.0-53.0 % Mean Corpuscular Volume 96.1 80.0-100.0 fL Mean Corpuscular Hemoglobin 31.6 28.0-32.0 pg Mean Corpuscular Hemoglobin Concent 32.9 32.0-36.0 g/dL Red Cell Distribution Width 14.5 H 11.8-14.3 % Platelet Count 243 140-450 10^3/uL Mean Platelet Volume 8.0 6.9-10.8 fL Neutrophils (%) (Auto) 79.0 37.0-80.0 % Lymphocytes (%) (Auto) 13.1 10.0-50.0 % Monocytes (%) (Auto) 6.4 0.0-12.0 % Eosinophils (%) (Auto) 1.2 0.0-7.0 % Basophils (%) (Auto) 0.3 0.0-2.0 % Neutrophils # (Auto) 11.0 H 1.6-8.6 10 ^3/uL Lymphocytes # (Auto) 1.8 0.4-5.4 10 ^3/uL Monocytes # (Auto) 0.9 0-1.3 10 ^3/uL Eosinophils # (Auto) 0.2 0-0.8 10 ^3/uL Basophils # (Auto) 0 0-0.2 10 ^3/uL Nucleated Red Blood Cells 0.1 % Sodium Level 139 136-145 mmol/L Potassium Level 4.0 3.5-5.1 mmol/L Chloride Level 105 98-107 mmol/L Carbon Dioxide Level 27 20-31 mmol/L Anion Gap 7 5-15 Blood Urea Nitrogen 24 H 9-23 mg/dL Creatinine 1.17 0.700-1.30 mg/dL Glomerular Filtration Rate Calc 62 >90 mL/min BUN/Creatinine Ratio 20.5 H 10.0-20.0 Serum Glucose 174 #H 74-106 mg/dL Lactic Acid Level 1.1 0.4-2.0 mmol/L Calcium Level 9.4 8.7-10.4 mg/dL Total Bilirubin 0.5 0.2-1.0 mg/dL Aspartate Amino Transferase (AST) 10 L 13-40 U/L Alanine Aminotransferase (ALT) 18 7-40 U/L Alkaline Phosphatase 47 46-116 U/L Total Protein 7.0 5.7-8.2 g/dL Albumin 4.2 3.2-4.8 g/dL Troponin I High Sensitivity 542 *H </=54 ng/L Test 03/04/24 04:35 03/03/24 22:20 03/03/24 19:00 03/03/24 18:00 Range/Units B-Type Natriuretic Peptide 84.19 0-100 pg/mL Blood Gas Specimen Type Arterial Blood Gas Sample Site Right radial Blood Gas Patient Temperature 37.0 Arterial Blood Date Drawn [id number] Arterial Blood pH 7.389 7.350-7.450 Arterial Blood Partial Pressure CO2 47.2 35.0-48.0 mmHg Arterial Blood Partial Pressure O2 173.2 H 83.0-108.0 mmHg Arterial Blood HCO3 27.9 21.0-28.0 mmol/L Arterial Blood Oxygen Saturation 99.0 H 94.0-98.0 % Arterial Blood Base Excess 2.1 -2.0-3.0 mmol/L Arterial Blood Oxyhemoglobin 97.7 94.0-98.0 % Arterial Blood Carboxyhemoglobin 0.8 0.5-1.5 % Arterial Blood Methemoglobin 0.5 0.0-1.5 % Jayson Test Modified Blood Gas Total Hemoglobin 15.90 13.5-17.5 g/dL Blood Gas Set Respiration Rate 12.0 Blood Gas Modality Mask - bipap Blood Gas Spontaneous Rate 24 FiO2 % 100.0 Blood Gas Spontaneous Tidal Volume 569 Blood Gas EPAP 5 Blood Gas IPAP 12 Hemoglobin A1c 6.9 H <5.7 % A1C Urine Color Colorless Yellow Urine Clarity Clear Clear Urine pH 5.0 5.0-9.0 Urine Specific [place] 1.024 1.001-1.035 Urine Protein 1+ H Negative Urine Ketones 1+ H Negative Urine Blood 2+ H Negative /uL Urine Nitrite Negative Negative Urine Bilirubin Negative Negative Urine Urobilinogen Normal Negative mg/dL Urine Leukocyte Esterase 1+ Negative /uL Urine RBC 31 0 - 3 /hpf Urine WBC 82 0 - 3 /hpf Urine Squamous Epithelial Cells Few <5 /hpf Urine Bacteria None seen None Seen /hpf Urine Glucose 4+ H Normal mg/dL Microbiology Date/Time Source Procedure Growth Status 03/04/24 06:56 Blood Blood Culture - Preliminary NO GROWTH AFTER 24 HOURS OF INCUBATION. Resulted 03/03/24 18:00 Voided Urine Urine Culture - Preliminary Resulted Assessment Impression: Food and larynx causing asphyxiation Choking due to food in the larynx Aspiration pneumonia Rule out foreign body Urinary tract infection Generalized weakness Sepsis Respiratory arrest due to aspiration of a foreign body Dementia Plan: CT chest report and images reviewed. Left lower lobe pneumonia in superior medial basal segments likely due to aspiration. Small amount of fluid is seen in the esophageal lumen. Mild right basilar subsegmental atelectasis. ABG reviewed. Compensated. Supplemental oxygen Keep O2 saturation above 90%. NPO after midnight. Plan for bronchoscopy in the a.m. to rule out foreign body and to remove suspect ed aspirated contents. Continue antibiotics Blood cultures no growth after 24 hours. WBC count trending down. Echo report reviewed. Left ventricular ejection fraction 50%. Grade 1 diastolic dysfunction. Normal right ventricular systolic function. Normal biatrial size and dimensions. No gross abnormalities as noted in report. DVT prophylaxis Bronchoscopy is tentatively plan [id number] pm on 03/06/2024. Prognosis: Guarded given multiple comorbidities. Rest of plan per hospitalist and other consultants. Thank you Dr. Evangelista for allowing me to participate in this patient's care. Further recommendations will depend on patient's clinical course. Please do not hesitate to contact me if you have any questions or concerns. This medical document was created using an electronic medical record system with [employer] dictation system. Although this document has been carefully reviewed, there may still be some phonetic and typographical errors. These areas are purely typographical due to imperfections of the software programs, and do not reflect any compromise in the patient's medical care. Plan discussed with: Patient, Daughter, Other (GLENN Delacruz MD) SERGIO SIDDIQUI MD Mar 05, 2024 18:57
[2024-03-05] MEDS: MORPHINE SULFATE INJ 2 MG/ml SYRG IV PRN (21:22)
[2024-03-06] VITALS (9 sets, daily range): BP systolic 133–145; BP diastolic 78–85; PULSE 88–104; RESP 16–22; TEMP 97.7–98.9; O2SAT 94–97
[2024-03-06 06:20] LABS: Basophils # (auto) 0.1 10 ^3/uL (0-0.2); Basophils % (auto) 0.4 % (0.0-2.0); Eosinophils # (auto) 0.2 10 ^3/uL (0-0.8); Eosinophils % (auto) 1.4 % (0.0-7.0); Hematocrit 43.8 % (41.0-53.0); Hemoglobin 14.7 g/dL (13.5-17.5); Lymphocytes # (auto) 2.2 10 ^3/uL (0.4-5.4); Lymphocytes % (auto) 14.3 % (10.0-50.0); Mean Corpuscular Hemoglobin 31.7 pg (28.0-32.0); Mean Corpuscular Hgb Conc. 33.5 g/dL (32.0-36.0); Mean Corpuscular Volume 94.7 fL (80.0-100.0); Monocytes # (auto) 1.2 10 ^3/uL (0-1.3); Monocytes % (auto) 7.5 % (0.0-12.0); Neutrophils # (auto) 11.7 10 ^3/uL (1.6-8.6); Neutrophils % (auto) 76.4 % (37.0-80.0); Platelet Count (auto) 263 10^3/uL (140-450); Red Blood Cells 4.63 10^6/uL (4.5-5.90); Red Cell Distribution Width 14.3 % (11.8-14.3); White Blood Cell 15.4 10^3/uL (4.4-10.8)
[2024-03-06 06:39] LABS: Alanine Aminotransferase 19 U/L (7-40); Albumin 4.4 g/dL (3.2-4.8); Alkaline Phosphatase 62 U/L (46-116); Anion Gap 6 (5-15); Aspartate Aminotransferase 9 U/L (13-40); BUN/Creatinine Ratio 22.6 (10.0-20.0); Bilirubin, Total 0.5 mg/dL (0.2-1.0); Blood Urea Nitrogen 21 mg/dL (9-23); Calcium 9.8 mg/dL (8.7-10.4); Carbon Dioxide 29 mmol/L (20-31); Chloride 104 mmol/L (98-107); Glucose 180 mg/dL (74-106); Potassium 3.8 mmol/L (3.5-5.1); Sodium 139 mmol/L (136-145); Total Protein 7.3 g/dL (5.7-8.2)
[2024-03-06] MEDS ORDERED: LIDOCAINE 2% JELLY 11ml (GLYDO) ONE (12:09)
[2024-03-06] MEDS ORDERED: LIDOCAINE 2%HCL (LOCAL ANESTH.) INJ 20ML MDV ONE (12:09)
[2024-03-06] MEDS ORDERED: GLYCOPYRROLATE 0.2 MG/ML 1ML VIAL ONE (12:10)
[2024-03-06] MEDS ORDERED: EPINEPHrine HCL 1 MG/1 ML AMP ONE (12:10)
[2024-03-06] MEDS ORDERED: SODIUM CHLORIDE LOCK 10 ML ONE (12:13)
[2024-03-06] MEDS ORDERED: diphenhdrAMINE HCL 50 MG/1 ML VL ONE (12:18)
[2024-03-06] MEDS: fentaNYL CITRATE 100 MCG/2 ML VL ONE (13:03)
[2024-03-06] MEDS: MIDAZOLAM HCL 5 MG/ML-1ML VIAL ONE (13:03)
--- NOTE | 2024-03-06 13:35 | DVHNC2 ---
Procedure - Bronchoscopy procedure note: Indications: Bilateral lower lobe atelectasis, Possible mucous plugging. Aspiration pneumonia Medicines: See sewer cleaner notes. Complications: None Procedure: Patient medications and allergies reviewed. The risks and benefits of the procedure and the sedation options and risk were discussed with the patient's healthcare proxy. All questions were answered and informed consent was obtained. Patient identification and proposed procedure were verified prior to the procedure by the physician, and a nurse, and the respiratory therapist in Endoscopy suite. The heart rate, respiratory rate, oxygen saturations, blood pressure, adequacy of pulmonary ventilation, and response to care were monitored throughout the procedure. The physical status of the patient was reassessed after the procedure. After obtaining informed consent, the bronchoscope was introduced through the endotracheal tube and advanced into the trachea bronchial tree of both lungs. The procedure was accomplished without difficulty. The patient tolerated the procedure well. Findings: The trachea is in normal caliber. The domi is sharp. The tracheobronchial tree of the right lung was examined to at least the first subsegmental level. The bronchial mucosa and anatomy in the right lung are normal. There are no endobronchial lesions. There was copious whitish secretions from bronchus intermedius onward throughout R6-R10. The left upper lobe, lingula, and left lower lobe were examined to at least the first subsegmental level. Bronchial mucosa and anatomy in the left upper lobe and lingula are normal. There were no endobronchial lesions. There was copious whitish secretions from left main stem bronchus onward throughout L6-L10. Mucous plugging removed from L6-L10. There was no active bleeding at the completion of the procedure. Estimated blood loss: Less than 5 mL. Impression: Bilateral lower lobe atelectasis due to mucous plugging Mucous plugging from L6-L10 and R6-R10 Aspiration pneumonia Ruled out foreign body Recommendation: Pulmonary toiletting and NTS PRN.. Procedure codes: 50456, bronchoscopy, rigid and flexible, including fluoroscopic guidance, one performed; with bronchial endobronchial removal of mucous plugs, s don or multiple sites SERGIO SIDDIQUI MD Mar 06, 2024 13:35
--- NOTE | 2024-03-06 14:20 | DVH ---
EXAM: XY CHEST PORTABLE Indication:POST BRONCH Technique: Single frontal view of the chest was obtained Comparison: XY CHEST PORTABLE on DOS: 03/03/24 FINDINGS: Lines and Tubes: None Lungs: Bibasilar opacities. Pleura: Trace bilateral pleural effusions. No pneumothorax. Cardiomediastinal contours: Cardiomegaly. Bones: No acute osseous abnormality. IMPRESSION: Cardiomegaly with trace bilateral pleural effusions and bibasilar atelectasis.
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
--- NOTE | 2024-03-06 19:35 | DVHPN2 ---
Progress Note - Dictate Date Seen: Mar 06, 2024 Has the PT tested + for MRSA If YES, has PT been informed?: No Medical Necessity Reason Pt with a Central, PICC or Fol: No Subjective Patient seen and examined at bedside. Remains on supplemental oxygen Overnight events reviewed. vital signs Vital Sign Date Time Temp Pulse Resp B/P (MAP) Pulse Ox O2 Delivery O2 Flow Rate FiO2 03/06/24 17:00 98.0 104 20 145/78 (100) 96 98.0 03/06/24 13:18 Mask 5.0 03/06/24 13:18 99 Total Intake and Output 03/05/24 03/05/24 03/06/24 15:00 23:00 07:00 Intake Total 1020 ml 1160 ml Balance 1020 ml 1160 ml medications Current Medications Medications Dose Ordered Sig/Fito Route Start Time Stop Time Status Last Admin Dose Admin Ceftriaxone Sodium 50 ml @ 100 mls/hr DAILY@09 IV 03/04/24 09:00 03/06/24 09:20 100 MLS/HR Azithromycin 250 ml @ 125 mls/hr DAILY IV 03/04/24 10:00 03/06/24 16:07 125 MLS/HR Heparin Sodium (Porcine) 5,000 units Q12HR SC 03/04/24 22:00 03/05/24 21:17 5,000 UNITS Sodium Chloride 10 ml Q8HR IV 03/04/24 06:00 03/06/24 15:35 10 ML Ondansetron HCl 4 mg Q4HP PRN IV 03/03/24 23:00 03/04/24 09:46 4 MG Diagnostic Test (Pha) 1 strip ACHS 03/04/24 07:00 03/06/24 16:46 1 STRIP Insulin Human Regular HS SC 03/04/24 22:00 03/05/24 21:33 6 UNITS Insulin Human Regular AC SC 03/04/24 07:00 03/06/24 16:54 6 UNITS Dextrose 50 ml UD PRN IV 03/04/24 00:00 Nitroglycerin 0.4 mg Q5MINP PRN SL 03/04/24 00:00 Hydralazine HCl 10 mg Q6HP PRN IV 03/04/24 02:45 03/04/24 02:56 10 MG Lorazepam 0.5 mg Q8HP PRN IV 03/04/24 02:45 Vancomycin HCl 0 ml @ 0 mls/hr UD IV 03/04/24 06:30 Cancel Vancomycin HCl 150 ml @ 150 mls/hr Q12H IV 03/05/24 01:00 Cancel Lidocaine 1 patch DAILY TOP 03/05/24 10:00 03/06/24 09:19 1 PATCH Famotidine 20 mg HS IV 03/04/24 22:00 03/04/24 22:34 20 MG Lactated Ringer's 1,000 ml @ 50 mls/hr Q20H IV 03/04/24 12:15 03/04/24 12:15 50 MLS/HR Acetaminophen 650 mg Q6HR PO 03/04/24 12:15 03/06/24 16:55 650 MG Morphine Sulfate 1 mg Q4HP PRN IV 03/04/24 12:15 03/05/24 21:22 1 MG Nifedipine 30 mg DAILY PO 03/04/24 12:15 03/06/24 09:30 30 MG Vancomycin HCl 0 ml @ 0 mls/hr UD IV 03/05/24 14:00 Vancomycin HCl 200 ml @ 200 mls/hr Q18H IV 03/05/24 15:00 03/06/24 10:44 200 MLS/HR objective Gen.: Patient lying in bed in no apparent distress. On supplemental oxygen. Head: Normocephalic, atraumatic. Eyes: EOMI/PERRLA. Ears: Normal hearing. Normal anatomy. Neck/trachea: Trachea midline, supple. Nose: Normal external anatomy. Mouth: Moist mucous membranes. Chest: Decreased air entry bilaterally. No wheezing or rhonchi. Cardiovascular: Positive S1, positive S2. Regular rate and rhythm. Abdomen: Positive bowel sounds in all 4 quadrants. Soft, non-tender, non- distended. : Deferred. Rectal: Deferred. Skin: Warm, dry. Intact. Extremities: 2+ radial pulses bilaterally. No lower extremity edema. Neuro: Awake, alert, oriented x3. No gross motor or sensory deficits. Cranial nerves II through XII intact. Gait not assessed. 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 Continue antibiotics Pain control Labs and imaging reviewed. Rest of plan as noted below. Plan: CT chest report and images reviewed. Left lower lobe pneumonia in superior medial basal segments likely due to aspiration. Small amount of fluid is seen in the esophageal lumen. Mild right basilar subsegmental atelectasis. ABG reviewed. Compensated. Supplemental oxygen Keep O2 saturation above 90%. Plan for bronchoscopy to rule out foreign body and to remove suspected aspirated contents. Continue antibiotics Blood cultures no growth after 48 hours. Urine culture showed MRSA. WBC count 15.4 K. Echo report reviewed. Left ventricular ejection fraction 50%. Grade 1 diastolic dysfunction. Normal right ventricular systolic function. Normal biatrial size and dimensions. No gross abnormalities as noted in report. DVT prophylaxis Prognosis: Guarded given multiple comorbidities. Rest of plan per hospitalist and other consultants. Thank you Dr. Evangelista for allowing me to participate in this patient's care. Further recommendations will depend on patient's clinical course. Please do not hesitate to contact me if you have any questions or concerns. This medical document was created using an electronic medical record system with [employer] dictation system. Although this document has been carefully reviewed, there may still be some phonetic and typographical errors. These areas are purely typographical due to imperfections of the software programs, and do not reflect any compromise in the patient's medical care. Plan discussed with: Patient, Other (GLENN Delacruz) SERGIO SIDDIQUI MD Mar 06, 2024 19:35
[2024-03-07] VITALS (8 sets, daily range): BP systolic 135–145; BP diastolic 73–81; PULSE 93–100; RESP 16–22; TEMP 97.8–99.1; O2SAT 93–97
--- NOTE | 2024-03-07 11:03 | DVH ---
ULTRASOUND ABDOMEN LIMITED INDICATION: Abdominal pain.. TECHNIQUE: Multiple real-time sonographic images of the abdomen were obtained. COMPARISON: None FINDINGS: The visualized liver parenchyma appears echogenic consistent with steatosis . The liver measures 19.8 cm. No discrete hepatic lesion or intrahepatic biliary ductal dilatation is identified. There is no evidence of gallstones, gallbladder wall thickening or pericholecystic fluid. The common biliary duct is not dilated. The right kidney measures 12.5 cm length. There is a 2.9 cm right upper renal sinus cyst. No sonogr aphic evidence of nephrolithiasis or hydronephrosis. Visualized pancreas appears within normal limits. IMPRESSION: 1. Hepatic steatosis. 2. 2.9 cm right renal sinus cyst. HS:Y
--- NOTE | 2024-03-07 16:03 | DVHPNRES ---
Progress Note Date Seen: Mar 07, 2024 Resident Creating Document: JAVIER HUFF RESIDENT Has the PT tested + for MRSA If YES, has PT been informed?: No Medical Necessity Reason Pt with a Central, PICC or Fol: No Subjective Review of Systems 83-year-old gentleman with past medical history significant dementia, diabetes mellitus, presented to the [facility] with the evaluation of possible cardiac arrest at home. As per EMS report patient was choked at home, needing heimlich/ Chest compressions. Extremely poor historian. Admits to having left-sided reproducible musculoskeletal chest pain, otherwise denies any other physical discomfort Patient is on airway observation. Hemodynamically stable. In the process of obtaining more health information. This a.m., patient alert and oriented x1. Denies having any active ongoing pain or discomfort, however, tenderness to palpation noted in the midepigastric area. Objective vital signs Vital Sign Date Time Temp Pulse Resp B/P (MAP) Pulse Ox O2 Delivery O2 Flow Rate FiO2 03/07/24 13:00 97.8 100 17 145/80 (101) 93 97.8 03/07/24 08:10 Nasal Cannula* 4 36 Total Intake and Output 03/06/24 03/06/24 03/07/24 15:00 23:00 07:00 Intake Total 250 ml 610 ml 860 ml Output Total 900 ml 1800 ml Balance 250 ml -290 ml -940 ml medications Current Medications Medications Dose Ordered Sig/Fito Route Start Time Stop Time Status Last Admin Dose Admin Ceftriaxone Sodium 50 ml @ 100 mls/hr DAILY@09 IV 03/04/24 09:00 03/07/24 11:11 100 MLS/HR Azithromycin 250 ml @ 125 mls/hr DAILY IV 03/04/24 10:00 03/07/24 12:49 125 MLS/HR Heparin Sodium (Porcine) 5,000 units Q12HR SC 03/04/24 22:00 03/07/24 10:52 5,000 UNITS Sodium Chloride 10 ml Q8HR IV 03/04/24 06:00 03/07/24 13:33 10 ML Ondansetron HCl 4 mg Q4HP PRN IV 03/03/24 23:00 03/04/24 09:46 4 MG Diagnostic Test (Pha) 1 strip ACHS 03/04/24 07:00 03/07/24 11:31 1 STRIP Insulin Human Regular HS SC 03/04/24 22:00 03/06/24 22:03 4 UNITS Insulin Human Regular AC SC 03/04/24 07:00 03/07/24 11:33 12 UNITS Dextrose 50 ml UD PRN IV 03/04/24 00:00 Nitroglycerin 0.4 mg Q5MINP PRN SL 03/04/24 00:00 Hydralazine HCl 10 mg Q6HP PRN IV 03/04/24 02:45 03/04/24 02:56 10 MG Lorazepam 0.5 mg Q8HP PRN IV 03/04/24 02:45 Vancomycin HCl 0 ml @ 0 mls/hr UD IV 03/04/24 06:30 Cancel Vancomycin HCl 150 ml @ 150 mls/hr Q12H IV 03/05/24 01:00 Cancel Lidocaine 1 patch DAILY TOP 03/05/24 10:00 03/07/24 11:01 1 PATCH Famotidine 20 mg HS IV 03/04/24 22:00 03/06/24 22:01 20 MG Lactated Ringer's 1,000 ml @ 50 mls/hr Q20H IV 03/04/24 12:15 03/04/24 12:15 50 MLS/HR Acetaminophen 650 mg Q6HR PO 03/04/24 12:15 03/07/24 11:08 650 MG Morphine Sulfate 1 mg Q4HP PRN IV 03/04/24 12:15 03/06/24 22:01 1 MG Nifedipine 30 mg DAILY PO 03/04/24 12:15 03/07/24 11:08 30 MG Vancomycin HCl 0 ml @ 0 mls/hr UD IV 03/05/24 14:00 Vancomycin HCl 200 ml @ 200 mls/hr Q18H IV 03/05/24 15:00 03/07/24 03:00 200 MLS/HR Examination GENERAL:Normal, HEENT:Normal, NECK:Normal, LUNGS:Abnormal (Bilateral lower side rales, crackles, left lower side diminished breathing,), CVS:Normal (? Flow murmur), CVS:Abnormal, ABDOMEN:Normal, MSK:Normal, SKIN:Normal, NEURO:Normal, :Normal laboratory and microbiology Laboratory Tests 03/07/24 05:18 03/06/24 05:24 Test 03/06/24 05:24 Range/Units Serum Glucose 180 H 74-106 mg/dL Microbiology Date/Time Source Procedure Growth Status 03/04/24 06:56 Blood Blood Culture - Preliminary NO GROWTH AFTER 72 HOURS OF INCUBATION. Resulted 03/03/24 18:00 Voided Urine Urine Culture - Final Methicillin Resistant S.aureus Complete Labs and/or images reviewed: Labs reviewed by me, Image(s) reviewed by me Problem List/Assessment/Plan Problem List/Assessment/Plan # Questionable stroke versus TIA: CT scan negative , no focal neurological deficits, poor historian, poor memory, check MRI noncontrast brain. Please check UDS. # episodes of choking: Patient kept NPO, swallow evaluation finds no dysphagia , status post helping procedure, questionable code. Swallow evaluation negative, restarting aspiration full liquid diet. 45 degree bedside head elevation. Consulted pulmonology, possible bronchoscopy tomorrow on 03/06/2024. # Possible dementia: AAOx4, memory defecits, continue delirium prevention with sleep hygiene, recurrent reorientation, family members at bedside, TV, as needed melatonin. # Aspiration pneumonia: Aspiration precautions, dietary modifications, continue IV ceftriaxone, azithromycin for now, check MRSA for the need of broader coverage. Daily CBC, check for fever chills. # sepsis secondary due to aspiration pneumonia: source response with elevated WBC, tachycardia, tachypnea, with possible source of infection in left lower lobe. continue IV antibiotics. # mild pulmonary congestion: Status post IV Lasix, patient is running in the room air, we will try to keep the patient's SpO2 above 94%. # Questionable cardiac contusion: Elevated troponin, unremarkable BNP. CXR shows unusual bilateral chest mediastinal widening, Questionable chest compression, bedside echo shows grossly preserved heart function, TTE/ echo pending. Keep the patient on telemetry, keep potassium above 4, magnesium over 2. # Type 2 NSTEMI: Could be chest injury related, demand mediated, EKG unremarkable, downtrending, grossly preserved ejection fraction, further information needed with telemetry, complete echo. Appreciate Cardiology input. # Non-anion gap metabolic acidosis with elevated lactic acid, likely due to ischemia: intact renal and liver function. Appropriately downtrending lactate 6.4, 3.4, 2.9, continue IV fluid, repeat Lactate. # possible anterior infarct, old: We will look for focal wall motion abnormality corresponding to the electrical activity. # Questionable UTI: Poor historian, negative CVA angle tenderness, negative suprapubic tenderness, Leukocyte esterase is positive, negative nitrate, trace blood. We will cover with ceftriaxone for now, looking for urine culture, blood culture. # Left-sided chest pain: Superficial left-sided chest pain, reproducible likely due to iatrogenic trauma secondary to chest compression. Continue incentive spirometry Q 1, local lidocaine patch, pain management . # starvation ketosis: Likely 1+ starvation ketosis. Due to NPO status. # hypertensive urgency /Emergency: Elevated blood pressure with a maximum systolic in the 190s, Started the patient on sheath nifedipine 30 extended release. As per aha/ ACC guidelines target blood pressure 130/80 or below. # Diabetes mellitus type 2 likely: 6.9 of HbA1c, SSI to continue. # possible underlying CKD stage II: Daily CBC, avoid nephrotoxic. # DVT prophylaxis: Heparin subcutaneous To continue. # Diet: tolerating diet, change to CC diet, semisolid. Small pieces, plenty of water, with proper chewing. PCP: [facility]. Patient stable to transfer Plan discussed with Dr. Michel. Plan discussed with: Patient, Daughter, Other (RN) My Orders My Orders Orders - JAVIER HUFF RESIDENT Procedure Category Date Status Time Abdomen Limited US 03/07/24 Resulted 09:30 Incentive Spirometry ORDERS 03/07/24 Transmitted 11:09 * [place] CONS 03/07/24 Transmitted Consult Date of Service: Mar 07, 2024 Billing Provider: JANA MICHEL MD Common Visit Codes: [id number] INP/OBS CARE(HIGH) Coding Comment Comment Attending Attestation I saw and evaluated the patient. I reviewed the residents note and agree with findings and plan as documented in the residents note except as documented below. Patient pending transfer to [facility] for continuity of care JAVIER HUFF Mar 07, 2024 16:03 JANA MICHEL MD Mar 07, 2024 18:40
[2024-03-07] MEDS: INSULIN LANTUS (GLARGINE) 1 /0.01ml (100units/ml) SC SCH (16:57)
[2024-03-07] MEDS: PIPERACILLIN-TAZOB 3.375GM 100 ML IV ONE (16:59)
--- NOTE | 2024-03-07 19:59 | DVHPN2 ---
Progress Note - Dictate Date Seen: Mar 07, 2024 Has the PT tested + for MRSA If YES, has PT been informed?: No Medical Necessity Reason Pt with a Central, PICC or Fol: No Subjective Patient seen and examined at bedside. Remains on supplemental oxygen Overnight events reviewed. vital signs Vital Sign Date Time Temp Pulse Resp B/P (MAP) Pulse Ox O2 Delivery O2 Flow Rate FiO2 03/07/24 18:28 99.1 96 17 94 03/07/24 16:00 141/81 (101) 03/07/24 08:10 Nasal Cannula* 4 36 Total Intake and Output 03/06/24 03/06/24 03/07/24 15:00 23:00 07:00 Intake Total 250 ml 610 ml 860 ml Output Total 900 ml 1800 ml Balance 250 ml -290 ml -940 ml medications Current Medications Medications Dose Ordered Sig/Fito Route Start Time Stop Time Status Last Admin Dose Admin Heparin Sodium (Porcine) 5,000 units Q12HR SC 03/04/24 22:00 03/07/24 10:52 5,000 UNITS Sodium Chloride 10 ml Q8HR IV 03/04/24 06:00 03/07/24 13:33 10 ML Ondansetron HCl 4 mg Q4HP PRN IV 03/03/24 23:00 03/04/24 09:46 4 MG Diagnostic Test (Pha) 1 strip ACHS 03/04/24 07:00 03/07/24 16:08 1 STRIP Insulin Human Regular HS SC 03/04/24 22:00 03/06/24 22:03 4 UNITS Insulin Human Regular AC SC 03/04/24 07:00 03/07/24 16:10 9 UNITS Dextrose 50 ml UD PRN IV 03/04/24 00:00 Nitroglycerin 0.4 mg Q5MINP PRN SL 03/04/24 00:00 Hydralazine HCl 10 mg Q6HP PRN IV 03/04/24 02:45 03/04/24 02:56 10 MG Lorazepam 0.5 mg Q8HP PRN IV 03/04/24 02:45 Vancomycin HCl 0 ml @ 0 mls/hr UD IV 03/04/24 06:30 Cancel Vancomycin HCl 150 ml @ 150 mls/hr Q12H IV 03/05/24 01:00 Cancel Lidocaine 1 patch DAILY TOP 03/05/24 10:00 03/07/24 11:01 1 PATCH Famotidine 20 mg HS IV 03/04/24 22:00 03/06/24 22:01 20 MG Lactated Ringer's 1,000 ml @ 50 mls/hr Q20H IV 03/04/24 12:15 03/04/24 12:15 50 MLS/HR Acetaminophen 650 mg Q6HR PO 03/04/24 12:15 03/07/24 17:00 650 MG Morphine Sulfate 1 mg Q4HP PRN IV 03/04/24 12:15 03/06/24 22:01 1 MG Nifedipine 30 mg DAILY PO 03/04/24 12:15 03/07/24 11:08 30 MG Vancomycin HCl 0 ml @ 0 mls/hr UD IV 03/05/24 14:00 Vancomycin HCl 200 ml @ 200 mls/hr Q18H IV 03/05/24 15:00 03/07/24 03:00 200 MLS/HR Piperacillin Sod/ Tazobactam Sod 100 ml @ 25 mls/hr Q8HR IV 03/07/24 22:00 Insulin Glargine 15 units DAILY@1000 SC 03/07/24 16:15 03/07/24 16:57 15 UNITS objective Gen.: Patient lying in bed in no apparent distress. On supplemental oxygen. Head: Normocephalic, atraumatic. Eyes: EOMI/PERRLA. Ears: Normal hearing. Normal anatomy. Neck/trachea: Trachea midline, supple. Nose: Normal external anatomy. Mouth: Moist mucous membranes. Chest: Decreased air entry bilaterally. No wheezing or rhonchi. Cardiovascular: Positive S1, positive S2. Regular rate and rhythm. Abdomen: Positive bowel sounds in all 4 quadrants. Soft, non-tender, non- distended. : Deferred. Rectal: Deferred. Skin: Warm, dry. Intact. Extremities: 2+ radial pulses bilaterally. No lower extremity edema. Neuro: Awake, alert, oriented x3. No gross motor or sensory deficits. Cranial nerves II through XII intact. Gait not assessed. 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 Incentive spirometry Continue antibiotics Pain control Head of bed elevation Aspiration precautions Labs and imaging reviewed. Rest of plan as noted below. Plan: CT chest report and images reviewed. Left lower lobe pneumonia in superior medial basal segments likely due to aspiration. Small amount of fluid is seen in the esophageal lumen. Mild right basilar subsegmental atelectasis. ABG reviewed. Compensated. Supplemental oxygen Keep O2 saturation above 90%. Patient is s/p bronchoscopy on 03/06 - foreign body was ruled out. See separate procedure note for details. Continue antibiotics Blood cultures no growth after 72 hours. Urine culture showed MRSA. WBC count 15.4 K on 03/06. Echo report reviewed. Left ventricular ejection fraction 50%. Grade 1 diastolic dysfunction. Normal right ventricular systolic function. Normal biatrial size and dimensions. No gross abnormalities as noted in report. DVT prophylaxis Prognosis: Guarded given multiple comorbidities. Rest of plan per hospitalist and other consultants. Thank you Dr. Evangelista for allowing me to participate in this patient's care. Further recommendations will depend on patient's clinical course. Please do not hesitate to contact me if you have any questions or concerns. This medical document was created using an electronic medical record system with [employer] dictation system. Although this document has been carefully reviewed, there may still be some phonetic and typographical errors. These areas are purely typographical due to imperfections of the software programs, and do not reflect any compromise in the patient's medical care. Plan discussed with: Patient, Other (GLENN Delacruz) SERGIO SIDDIQUI MD Mar 07, 2024 19:59
[2024-03-07] MEDS ORDERED: PIPERACILLIN-TAZOB 3.375GM 100 ML IV SCH (22:00)
== END 2024-03-07 21:04 | disposition short-term general hospital (02) | DRG 871 ==
LOC: EDBD 17:28 → ER 17:28 → TELE 23:50 → TELE-EAST 03-04 14:45
PROVIDERS: ADMIT Student in an Organized Health Care Education/Training Program; ATTEND Emergency Medicine
PROC: 5A09357 Assistance with Respiratory Ventilation, Less than 24 Consecutive Hours, Continuous Positive Airway Pressure (ICD-10-PCS; 2024-03-03)
PROC: 0BJ08ZZ Inspection of Tracheobronchial Tree, Via Natural or Artificial Opening Endoscopic (ICD-10-PCS; 2024-03-06)
PROC: 0BC78ZZ Extirpation of Matter from Left Main Bronchus, Via Natural or Artificial Opening Endoscopic (ICD-10-PCS; principal; 2024-03-06 12:48)
DX: A41.9 Sepsis, unspecified organism (principal); I21.A1 Myocardial infarction type 2; J69.0 Pneumonitis due to inhalation of food and vomit; J18.9 Pneumonia, unspecified organism; I46.8 Cardiac arrest due to other underlying condition; N39.0 Urinary tract infection, site not specified; I16.1 Hypertensive emergency; G45.9 Transient cerebral ischemic attack, unspecified; E87.20 Acidosis, unspecified; T17.320A Food in larynx causing asphyxiation, initial encounter; T73.0XXA Starvation, initial encounter; W44.F3XA Food entering into or through a natural orifice, initial encounter; F03.90 Unspecified dementia, unspecified severity, without behavioral disturbance, psychotic disturbance, mood disturbance, and anxiety; I12.9 Hypertensive chronic kidney disease with stage 1 through stage 4 chronic kidney disease, or unspecified chronic kidney disease; R09.89 Other specified symptoms and signs involving the circulatory and respiratory systems; X58.XXXA Exposure to other specified factors, initial encounter; N18.2 Chronic kidney disease, stage 2 (mild); F17.200 Nicotine dependence, unspecified, uncomplicated; Y93.89 Activity, other specified; Y92.89 Other specified places as the place of occurrence of the external cause; Y99.8 Other external cause status; I25.2 Old myocardial infarction; I16.0 Hypertensive urgency
CPT/HCPCS: 31645; 36415; 36600; 70450; 71045; 71275; 76705; 80048; 80053; 80202; 81001; 82565; 82805; 82962; 83036; 83605; 83880; 84484; 85025; 85610; 87040; 87086; 87088; 87186; 93005; 93306; 94660; 99291; G0378; J0171; J0692; J1815; J2250; J2405; J2543; J3490